=== PATIENT | female | born 1975 | race African-American/Black ===

== ENCOUNTER 2016-07-11 12:10 | Emergency (ER) | payer OTHER ==
[~2016-07-11 12:10] MED LIST: AUGMENTIN 875-1 EACH PO; CLONAZEPAM1 M2 PO; HYDROCHLOROTHIA25 M1 PO; IBUPROFEN600 M1 PO; MUPIROCIN22 GM TOP; NAPROXEN500 M1 PO; VIBRAMYCIN100 MG PO; ZOFRAN ODT4 M1 PO
--- NOTE | 2016-07-11 12:23 | ED GENERAL ADULT ---
History of Present Illness General Chief Complaint: Lower Extremity Problems Stated Complaint: BIBA KNEE PAIN AND ETOH Source: patient, family, old records, EMS Exam Limitations: intoxication Vital Signs & Intake/Output Vital Signs & Intake/Output Vital Signs Date Time Temp Pulse Resp B/P B/P Pulse O2 O2 Flow FiO2 Mean Ox Delivery Rate 07/11 1823 97.4 94 20 129/86 98 Room Air 07/11 1709 97.9 126 20 121/74 98 07/11 1501 97.0 82 18 124/78 98 Room Air 07/11 1500 97.0 82 18 124/78 07/11 1347 Room Air 07/11 1230 96.7 84 18 128/82 07/11 1220 96.7 84 18 128/82 100 Room Air Allergies Coded Allergies: venom-honey bee (Severe, ANAPHYLAXIS 12/09/15) Uncoded Allergies: DAIRY FOODS (Intermediate, BAD STOMACH THINGS 07/10/15) Reconcile Medications Clonazepam 1 MG TABLET 1 TAB PO TID PRN ANXIETY (Reported) Hydrochlorothiazide 25 MG TABLET 1 TAB PO DAILY WATER PILL (Reported) Naproxen 500 MG ECT 1 TAB PO BID PRN PAIN Paroxetine HCl 20 MG TABLET 1 TAB PO [facility] MENTAL HEALTH (Reported) Triage Nurses Notes Reviewed? yes HPI: Patient is a 41-year-old female brought in by ambulance with complaints of bilateral knee pain. Patient reports the pain is chronic. Today patient was drinking alcohol to try to make herself go to sleep to help with the pain. Patient was on the phone with her mother in [place] who called 911 out of concern for her daughter. Patient reports she drank approximately 5 drinks this morning and took Aleve to help with her pain. Patient complaining that her primary doctor will not do anything to address her pain. Patient has been going to physical therapy, had an MRI of her knees within the past 1 week. Patient denies recent trauma, suicidal ideation, suicide attempt (IRVIN OLIVARES,GLORIA) Past History Travel History Traveled to [place] past 21 day No Medical History Any Pertinent Medical History? 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 No (GLORIA SANTIAGO) Review of Systems Review of Systems Constitutional: Denies: chills, fever. EENTM: Reports: no symptoms. Respiratory: Denies: short of breath. Cardiovascular: Denies: chest pain. GI: Denies: abdominal pain. Musculoskeletal: Reports: see HPI, joint pain (chronic). Skin: Reports: no symptoms. Neurological/Psychological: Reports: see HPI, depressed, emotional problems. Hematologic/Endocrine: Reports: no symptoms. Immunologic/Allergic: Reports: no symptoms. (GLORIA SANTIAGO) Physical Exam Physical Exam General Appearance: alert, awake, intoxicated Head: atraumatic, normal appearance Eyes: Bilateral: normal appearance. Ears, Nose, Throat: hearing grossly normal Neck: normal inspection, full range of motion Respiratory: no respiratory distress Back: normal range of motion Extremities: normal inspection, normal range of motion Neurologic/Psych: awake, alert, appears intoxicated, pressured speech, circumferential. Skin: intact, normal color, warm/dry Core Measures ACS in differential dx? No CVA/TIA Diagnosis: No Severe Sepsis Present: No Septic Shock Present: No (GLORIA SANTIAGO) Progress Differential Diagnoses I considered the following diagnoses in my evaluation of the patient: alcohol intoxication, chronic pain, overdose, mood disorder, personality disorder, polysubstnace abuse Plan of Care: Orders Procedure Date/time Status Regular Diet 07/11 D Active Continuous Observation Monitor 07/11 1226 Active CIWA 07/11 1226 Active URINE DRUGS OF ABUSE 07/11 1226 Complete URINE 07/11 1226 Complete ACETOMINOPHEN 07/11 1226 Complete SALICYLATE 07/11 1226 Complete ETHANOL 07/11 1226 Complete COMPREHENSIVE METABOLIC PANEL 07/11 1226 Complete CBC WITHOUT DIFFERENTIAL 07/11 1226 Complete Laboratory Tests 07/11/16 1530: Anion Gap 16, Estimated GFR > 60, BUN/Creatinine Ratio 10.0, Glucose 85, Calcium 9.1, Total Bilirubin 0.7, AST 202 H, ALT 138 H, Alkaline Phosphatase 55, Total Protein 7.2, Albumin 4.2, Globulin 3.0, Albumin/Globulin Ratio 1.4, CBC w Diff NO MAN DIFF REQ, RBC 3.92 L, MCV 99.5 H, MCH 34.0 H, RDW 14.3, MPV 8.1, Gran % 42.9, Lymphocytes % 42.5, Monocytes % 11.7 H, Eosinophils % 1.6, Basophils % 1.3, Absolute Granulocytes 1.4, Absolute Lymphocytes 1.4, Absolute Monocytes 0.4 , Absolute Eosinophils 0.1, Absolute Basophils 0, PUBS MCHC 34.2, Salicylates < 1.0, Acetaminophen < 10.0 L, Serum Alcohol 366.0 07/11/16 1315: Urine Opiates Screen < 100.00, Methadone Screen < 40, Barbiturate Screen < 60, Ur Phencyclidine Scrn < 6.00, Amphetamines Screen 136, U Benzodiazepines Scrn < 85, Urine Cocaine Screen < 50, Urine Cannabis Screen < 5.00, Urine Test NEGATIVE 1700: Patient's mother here with patient. Discussed results of patient's MRI of her right knee with the patient and her mother. Patient's mother requesting pain medication for patient due to severe knee pain. I discussed with the patient and her mother given her level of alcohol intoxication that I am not comfortable prescribing pain medication. Patient's mother is not comfortable with the patient being discharged while patient is this intoxicated. 1800: Mother requesting that patient be discharged. Patient has been re- evaluated multiple times. No suicidal ideation on multiple re-examinations. Mother reports that she will be staying with the patient for the next couple of days until the patient's orthopedic appointment on Wednesday. (GLORIA SANTIAGO) Initial ED EKG: none (GLORIA SANTIAGO) Departure Departure Time of Disposition: 1809 Disposition: HOME OR SELF CARE Condition: Stable Clinical Impression Primary Impression: Alcohol intoxication Qualifiers: Complication of substance-induced condition: uncomplicated Qualified Code: F10.920 - Alcohol use, unspecified with intoxication, uncomplicated Secondary Impressions: Chronic pain of both knees Referrals: JUAN GONZALEZ APRN (PCP/Family) Additional Instructions: Follow up with your orthopedist on Wednesday. Follow up with your primary care provider and your therapist. Departure Forms: Customer Survey General Discharge Information (GLORIA SANTIAGO) PA/EMERGENCY PREPAREDNESS MANAGER Co-Sign Statement Statement: ED Attending supervision documentation- [] I saw and evaluated the patient. I have also reviewed all the pertinent lab results and diagnostic results. I agree with the findings and the plan of care as documented in the PA's/EMERGENCY PREPAREDNESS MANAGER's documentation. [X] I have reviewed the ED Record and agree with the PA's/EMERGENCY PREPAREDNESS MANAGER's documentation. [] Additions or exceptions (if any) to the PAs/EMERGENCY PREPAREDNESS MANAGER's note and plan are summarized below: [] (MELODIE DOMINGUEZ,RITA Mcelroy) Critical Care Note Critical Care Note Critical Care Time: non-applicable (IRVIN OLIVARES,GLORIA)
[2016-07-11] MEDS ORDERED: PAROXETINE HCL20 M1 PO (13:14)
[2016-07-11 15:38] LABS: ABSOLUTE BASOPHIL COUNT 0 /CUMM (0.0-0.2); ABSOLUTE EOSINOPHIL COUNT 0.1 /CUMM (0.0-0.7); ABSOLUTE GRANULOCYTE CT 1.4 /CUMM (1.4-6.5); ABSOLUTE LYMPH COUNT 1.4 /CUMM (1.2-3.4); ABSOLUTE MONOCYTE COUNT 0.4 /CUMM (0.10-0.60); BASOPHIL % 1.3 % (0.0-2.0); EOSINOPHIL % 1.6 % (0-5); GRANULOCYTE % 42.9 % (42.2-75.2); MEAN CORPUSCULAR HGB CONC 34.2 G/DL (33.0-37.0); MEAN CORPUSCULAR VOLUME 99.5 FL (81.0-99.0); MEAN PLATELET VOLUME 8.1 FL (7.4-10.4); PLATELET COUNT 147 /CUMM (130-400); RBC DISTRIBUTION WIDTH 14.3 % (11.5-14.5); RED BLOOD CELL CT 3.92 /CUMM (4.20-5.40); WHITE BLOOD CELL COUNT 3.3 /CUMM (4.8-10.8)
[2016-07-11 18:23] VITALS: BP 129/86
== END 2016-07-11 18:29 ==
LOC: ERH 12:10
PROVIDERS: Physician Assistant
DX: F10.129 Alcohol abuse with intoxication, unspecified (principal); G89.29 Other chronic pain; M25.561 Pain in right knee; M25.562 Pain in left knee
CPT/HCPCS: 80307; 81025; G0480

== ENCOUNTER 2017-04-18 14:26 | Emergency (ER) | payer OTHER ==
[~2017-04-18] VITALS: Ht 172.7 cm; Wt 77.1 kg
[~2017-04-18 14:26] MED LIST changes: +PAROXETINE HCL20 M1 PO
[2017-04-18] MEDS ORDERED: CLONIDINE HCL0.1 MG PO (14:47)
[2017-04-18] MEDS ORDERED: MELOXICAM15 M1 PO (14:48)
[2017-04-18] MEDS ORDERED: FLUOXETINE HCL20 M2 PO (14:48)
[2017-04-18] MEDS ORDERED: TRAZODONE HCL50 M1 PO (14:48)
[2017-04-18] MEDS ORDERED: MEDROXYPRO150 MG/11 IM (14:49)
--- NOTE | 2017-04-18 14:49 | ED CARDIAC/CP/PALPITATIONS ---
History of Present Illness General Chief Complaint: Dyspnea (COPD, CHF, Other) Stated Complaint: BIBA DIFF BREATHING AND CHEST TIGHTNESS Source: patient Exam Limitations: no limitations Vital Signs & Intake/Output Vital Signs & Intake/Output Vital Signs Date Time Temp Pulse Resp B/P B/P Pulse O2 O2 Flow FiO2 Mean Ox Delivery Rate 04/18 1803 98.4 76 18 163/94 97 Room Air 04/18 1723 98 04/18 1713 88 19 174/110 99 Room Air ED Intake and Output 04/19 0000 04/18 1200 Intake Total 100 Output Total Balance 100 Intake, Oral 100 Patient 170 lb Weight Weight Reported by Patient Measurement Method Allergies Coded Allergies: venom-honey bee (Severe, ANAPHYLAXIS 04/18/17) Uncoded Allergies: DAIRY FOODS (Intermediate, BAD STOMACH THINGS 07/10/15) Reconcile Medications Albuterol Sulfate (Proair Hfa) 90 MCG HFA.AER.AD 2 PUF INH Q4-6 PRN PRN COUGH/ CHEST TIGHTNESS Cholecalciferol (Vitamin D3) (Vitamin D) 2,000 UNIT TABLET 1 TAB PO DAILY SUPPLEMENT (Reported) Clonazepam 1 MG TABLET 1 TAB PO TID PRN ANXIETY (Reported) Clonidine HCl 0.1 MG TABLET 1 TAB PO BIDP ANXIETY AND PTSD (Reported) Fluoxetine HCl 20 MG CAPSULE 1 CAP PO DAILY ANXIETY (Reported) Hydrochlorothiazide 25 MG TABLET 1 TAB PO DAILY WATER PILL (Reported) Medroxyprogesterone Acetate 150 MG/ML SYRINGE 1 ML IM Q3M CONTRACEPTIVE ( Reported) Meloxicam 15 MG TABLET 1 TAB PO DAILY CHRONIC PAIN (Reported) Paroxetine HCl 20 MG TABLET 1 TAB PO QHS MENTAL HEALTH (Reported) Prednisone 50 MG TABLET 1 TAB PO DAILY COPD Trazodone HCl 50 MG TABLET 1 TAB PO QPMP PRN INSOMNIA (Reported) Triage Note: PT BIBA FROM HOME C/P, SOB AND NON PRODUCTIVE COUGH x APPROXIMATLY 1 WEEK. PAIN HAS BEEN MOSTLY CONSTANT BUT DOES WAX/WANE IN INTENSITY. DESCRIBES DISCOMFORT. +N/V FEW DAYS AGO, DENIES NAUSEA AT PRESENT. -DIAPHORESIS. EKG DONE ON ARRIVAL BY MARILYN AYALA. Triage Nurses Notes Reviewed? yes Onset: Abrupt Duration: week(s): (1), constant, continues in ED Timing: recent history Quality/Severity: tightness Location: central Radiation: no radiation Activities at Onset: none Prior Chest Pain/Card Workup: no prior chest pain, no prior cardiac workup Nitro Today/Relief: no nitro taken today Aspirin Today: no aspirin today Associated Symptoms: shortness of breath, cough LMP (ages 10-50): unknown : No Patient currently breastfeeds: No HPI: 41-year-old female asked medical history of anxiety, depression presents for evaluation of chest tightness and shortness of breath. Patient states symptoms started one week ago and have been constant. She states that the tightness is located diffusely in her chest and epigastric area and feels like a constricting feeling. It is associated with cough wheezing and shortness of breath. Patient states she is a current every day smoker and has been sober for many years. She denies any known history of COPD or asthma. She does not have an inhaler at home. She denies any fever or hemoptysis lower extremity edema. No chest pain or shortness of breath on exertion. She's never been evaluated for this before. Symptoms have been present constantly for 1 week. No nausea vomiting diarrhea sweats chills. (Alfred Pham) Past History Travel History Traveled to [place] past 21 day No Medical History Any Pertinent Medical History? 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 No (Alfred Pham) Review of Systems Review of Systems Constitutional: Reports: no symptoms. EENTM: Reports: no symptoms. Respiratory: Reports: see HPI, cough, short of breath, wheezing. Cardiovascular: Reports: see HPI, chest pain. GI: Reports: no symptoms. Genitourinary: Reports: no symptoms. Musculoskeletal: Reports: no symptoms. Skin: Reports: no symptoms. Neurological/Psychological: Reports: no symptoms. Hematologic/Endocrine: Reports: no symptoms. Immunologic/Allergic: Reports: no symptoms. All Other Systems: Reviewed and Negative (Alfred Pham) Physical Exam Physical Exam General Appearance: well developed/nourished, no apparent distress, alert, awake Head: atraumatic, normal appearance Eyes: Bilateral: normal appearance, PERRL, EOMI. Ears, Nose, Throat: normal pharynx, normal ENT inspection, hearing grossly normal Neck: normal inspection, supple, full range of motion Respiratory: no respiratory distress, decreased breath sounds, wheezing, chest wall is tender to palpation over the sternum and epigastric area no bruising swelling or abrasions no rashes Cardiovascular: regular rate/rhythm, normal peripheral pulses Peripheral Pulses: 2+ radial (R), 2+ radial (L) Gastrointestinal: normal bowel sounds, soft, no organomegaly, tenderness ( epigastric) Back: normal inspection, normal range of motion, no vertebral tenderness Extremities: normal inspection, normal range of motion, no edema Neurologic/Psych: no motor/sensory deficits, awake, alert, oriented x 3, normal gait Skin: intact, normal color, warm/dry Lymphatic: no anterior cervical mahin Core Measures ACS in differential dx? Yes No ASA d/t ruled out CVA/TIA Diagnosis No Sepsis Present: No Sepsis Focused Exam Completed? No (Prieto OLIVARES,Alfred) Progress Differential Diagnosis: AMI, aortic dissection, atrial fibrillation, CHF/pulm edema, musculoskeletal pain, pancreatitis, pericarditis, pneumonia, pneumothorax , PSVT, pulmonary embolism, PUD/GERD, PVCs/PACs, unstable angina, COPD, asthma exacerbation, acute bronchitis Plan of Care: Orders Procedure Date/time Status Add-on Test (ER Only) 04/18 1558 Active LIPASE 04/18 1455 Complete HUMAN BETA HCG SCREEN 04/18 1455 Complete URINE 04/18 1434 Active URINALYSIS 04/18 1434 Active TROPONIN LEVEL 04/18 1434 Complete COMPREHENSIVE METABOLIC PANEL 04/18 1434 Complete CBC WITHOUT DIFFERENTIAL 04/18 1434 Complete EKG 04/18 1427 Active Laboratory Tests 04/18/17 1455: Anion Gap 15, Estimated GFR > 60, BUN/Creatinine Ratio 11.1, Glucose 106 H, Calcium 9.8, Total Bilirubin 1.0, AST 39 H, ALT 32, Alkaline Phosphatase 76, Troponin I < 0.01, Total Protein 7.7, Albumin 4.4, Globulin 3.3, Albumin/ Globulin Ratio 1.3, Lipase 101, Total Beta HCG NEGATIVE, CBC w Diff NO MAN DIFF REQ, RBC 4.54, MCV 93.7, MCH 31.5 H, MCHC 33.7, RDW 14.5, MPV 8.6, Gran % 51.8, Lymphocytes % 38.8, Monocytes % 7.4, Eosinophils % 1.5, Basophils % 0.5, Absolute Granulocytes 2.8, Absolute Lymphocytes 2.1, Absolute Monocytes 0.4, Absolute Eosinophils 0.1, Absolute Basophils 0 04/18/17 1448: Lipase Cancelled Patient seen and evaluated. She denies symptoms for greater than a week now. Symptoms have been constant. She has tenderness palpation in her sternum and epigastric area. Breath sounds are diminished bilaterally with faint wheezing. Patient was given a DuoNeb and reported feeling better. CT scan of the chest abdomen and pelvis shows evidence of COPD. No pneumonia. All blood work is within normal limits EKG is stable negative troponin negative d-dimer. Patient is a long-time smoker suspect this may be COPD. Hypoxia. Patient was elevated in the emergency department does not desaturate. Patient will be treated with prednisone and pro-air. She'll be referred to a repairer engine production. Advised her to rest and plenty of fluids quit smoking Tylenol and ibuprofen for pain. Return precautions in detail patient appears chronically while she agrees the plan. Diagnostic Imaging: Viewed by Me: CT Scan. Discussed w/RAD: CT Scan. Radiology Impression: PATIENT: HALI LICEA PRESENT AGE: 41 PATIENT ACCOUNT NO: [id number] : 74 LOCATION: [facility] ORDERING PHYSICIAN: Alfred OLIVARES SERVICE DATE: 04/18/17 EXAM TYPE: CAT - CT ABD & PELVIS W/O IV CONTRAS; CT CHEST WO IV CONTRAST EXAMINATION: CT CHEST WITHOUT IV CONTRAST CT ABDOMEN AND PELVIS WITHOUT IV CONTRAST CLINICAL INFORMATION: 41- year-old female with chest pain, shortness of breath and epigastric pain. Evaluate for pulmonary edema, pneumonia, cholecystitis and/or abdominal aorta aneurysm. COMPARISON: CT images of the abdomen pelvis from 06/18/2009. TECHNIQUE : Multidetector CT imaging examination of the chest, abdomen and pelvis was performed without contrast. Axial images are displayed at 0.625 mm and 5 mm slice thickness. Coronal and sagittal reformatted images were generated at the technologist's workstation and submitted for review. DLP: 432 mGy-cm FINDINGS: CHEST - LUNGS and PLEURA: Trachea and central airways are widely patent and normal in caliber. Mild centrilobular emphysema. Small, 0.2 cm nodule in the anterior left lung apex (image 84, series 4). There appears to be mild wall thickening around a peripheral airway in the left apex (image 75, series 4). A small, 0.3 cm noncalcified nodule is present within the lingula (image 211, series 4). No suspicious appearing nodule, mass, consolidation, edema, pleural effusion or pneumothorax. MEDIASTINUM: The heart size is normal. Mild atherosclerotic calcification of left anterior descending coronary artery. Thoracic aorta and pulmonary arteries are normal in size. No pericardial effusion. The esophagus and thyroid gland are grossly unremarkable. LYMPHATICS: No pathologic sized axillary, hilar or mediastinal lymph nodes. CHEST WALL/BONES : Thoracic vertebra have normal density, height and alignment. No suspicious osseous lesions within the thorax. No chest wall mass. ABDOMEN AND PELVIS - HEPATOBILIARY: Liver has normal size, contour and attenuation. Gallbladder is physiologically distended and without radiopaque calculi, wall edema or pericholecystic fluid. No intrahepatic or extrahepatic bile duct dilatation. PANCREAS: Unremarkable. SPLEEN: Unremarkable. ADRENAL GLANDS: Unremarkable. KIDNEYS, URETERS, BLADDER: Unremarkable. No nephrolithiasis, hydroureteronephrosis or perinephric edema. Urinary bladder is normal. GI TRACT AND PERITONEUM: Stomach is grossly normal. Bowel loops are normal in size. Appendix is normal. There are scattered colonic diverticula without diverticulitis. No ascites or pneumoperitoneum. ABDOMINAL WALL: There is diastases of rectus abdominis muscles with a very small fat-containing umbilical hernia. VASCULAR: Abdominal aorta is normal for a noncontrast examination. No aortic aneurysm or retroperitoneal hematoma. The left gonadal vein is dilated to 0.8 cm, suggestive of venous valve incompetence. Multiple phleboliths are present in the pelvis. LYMPH NODES: No pathologic sized lymph nodes within the abdomen or pelvis. PELVIC VISCERA: The uterus and adnexa are unremarkable. No pelvic free fluid. OSSEOUS STRUCTURES: The lumbar vertebra have normal height and alignment. No suspicious osseous lesions. IMPRESSION: 1. No acute findings within the chest. Specifically, no evidence of pulmonary edema or pneumonia. 2. Mild centrilobular emphysema. Within the left lung, there are 0.2 cm and 0.3 cm noncalcified nodules. Based on updated guidelines from the Fleischner Society for nodules of this small size, routine CT follow-up is not required in a low- risk patient and is considered optional at 12 months in a high risk patient. 3. No acute findings within the abdomen or pelvis. 4. Colonic diverticulosis without diverticulitis. DICTATED BY: Denis Dial MD DATE/TIME DICTATED:04/18 MANIFEST CLERK:PIPO DATE/TIME TRANSCRIBED:04/18/171645 CONFIDENTIAL, DO NOT COPY WITHOUT APPROPRIATE AUTHORIZATION. Initial ED EKG: normal sinus rhythm, LVH, BORDERLINE PORLONGED QT INTERVAL QTC 496 (Alfred Pham) Departure Departure Disposition: HOME OR SELF CARE Condition: Stable Clinical Impression Primary Impression: COPD (chronic obstructive pulmonary disease) Qualifiers: COPD type: emphysema Emphysema type: unspecified Qualified Code: J43.9 - Emphysema, unspecified Referrals: Denise Lam APRN (PCP/Family) Meng Hinds MD Additional Instructions: Rest and drink plenty of fluids. Take steroids as directed for the full course. Use pro-air inhaler 2 puffs every 4-6 hours as needed for shortness of breath and chest tightness. Make a follow-up appointment with your primary care doctor and provided repairer engine production as soon as possible. Monitor symptoms closely return with any concerns. Departure Forms: Customer Survey General Discharge Information Prescriptions: Current Visit Scripts Albuterol Sulfate (Proair Hfa) 2 PUF INH Q4-6 PRN PRN COUGH/CHEST TIGHTNESS #1 INHAL Prednisone 1 TAB PO DAILY #5 TAB (Alfred Pham) PA/PERMASTONE INSTALLER Co-Sign Statement Statement: ED Attending supervision documentation- [] I saw and evaluated the patient. I have also reviewed all the pertinent lab results and diagnostic results. I agree with the findings and the plan of care as documented in the PA's/PERMASTONE INSTALLER's documentation. [X] I have reviewed the ED Record and agree with the PA's/PERMASTONE INSTALLER's documentation. [] Additions or exceptions (if any) to the PAs/PERMASTONE INSTALLER's note and plan are summarized below: [] (Alfonso DOMINGUEZ,Rod Mcelroy) Critical Care Note Critical Care Note Critical Care Time: non-applicable (Alfred Pham)
[2017-04-18] MEDS ORDERED: VITAMIN D2000 UNI1 PO (14:50)
[2017-04-18 15:09] LABS: ABSOLUTE BASOPHIL COUNT 0 /CUMM (0.0-0.2); ABSOLUTE EOSINOPHIL COUNT 0.1 /CUMM (0.0-0.7); ABSOLUTE GRANULOCYTE CT 2.8 /CUMM (1.4-6.5); ABSOLUTE LYMPH COUNT 2.1 /CUMM (1.2-3.4); ABSOLUTE MONOCYTE COUNT 0.4 /CUMM (0.10-0.60); BASOPHIL % 0.5 % (0.0-2.0); EOSINOPHIL % 1.5 % (0-5); GRANULOCYTE % 51.8 % (42.2-75.2); HEMATOCRIT 42.5 % (37-47); MEAN CORPUSCULAR HGB 31.5 PG (27.0-31.0); MEAN CORPUSCULAR HGB CONC 33.7 G/DL (33.0-37.0); MEAN CORPUSCULAR VOLUME 93.7 FL (81.0-99.0); MEAN PLATELET VOLUME 8.6 FL (7.4-10.4); PLATELET COUNT 217 /CUMM (130-400); RBC DISTRIBUTION WIDTH 14.5 % (11.5-14.5); RED BLOOD CELL CT 4.54 /CUMM (4.20-5.40); WHITE BLOOD CELL COUNT 5.5 /CUMM (4.8-10.8)
--- NOTE | 2017-04-18 17:03 | CT SCAN REPORT ---
EXAMINATION: CT CHEST WITHOUT IV CONTRAST CT ABDOMEN AND PELVIS WITHOUT IV CONTRAST CLINICAL INFORMATION: 41-year-old female with chest pain, shortness of breath and epigastric pain. Evaluate for pulmonary edema, pneumonia, cholecystitis and/or abdominal aorta aneurysm. COMPARISON: CT images of the abdomen pelvis from 06/18/2009. TECHNIQUE: Multidetector CT imaging examination of the chest, abdomen and pelvis was performed without contrast. Axial images are displayed at 0.625 mm and 5 mm slice thickness. Coronal and sagittal reformatted images were generated at the technologist's workstation and submitted for review. DLP: 432 mGy-cm FINDINGS: CHEST - LUNGS and PLEURA: Trachea and central airways are widely patent and normal in caliber. Mild centrilobular emphysema. Small, 0.2 cm nodule in the anterior left lung apex (image 84, series 4). There appears to be mild wall thickening around a peripheral airway in the left apex (image 75, series 4). A small, 0.3 cm noncalcified nodule is present within the lingula (image 211, series 4). No suspicious appearing nodule, mass, consolidation, edema, pleural effusion or pneumothorax. MEDIASTINUM: The heart size is normal. Mild atherosclerotic calcification of left anterior descending coronary artery. Thoracic aorta and pulmonary arteries are normal in size. No pericardial effusion. The esophagus and thyroid gland are grossly unremarkable. LYMPHATICS: No pathologic sized axillary, hilar or mediastinal lymph nodes. CHEST WALL/BONES: Thoracic vertebra have normal density, height and alignment. No suspicious osseous lesions within the thorax. No chest wall mass. ABDOMEN AND PELVIS - HEPATOBILIARY: Liver has normal size, contour and attenuation. Gallbladder is physiologically distended and without radiopaque calculi, wall edema or pericholecystic fluid. No intrahepatic or extrahepatic bile duct dilatation. PANCREAS: Unremarkable. SPLEEN: Unremarkable. ADRENAL GLANDS: Unremarkable. KIDNEYS, URETERS, BLADDER: Unremarkable. No nephrolithiasis, hydroureteronephrosis or perinephric edema. Urinary bladder is normal. GI TRACT AND PERITONEUM: Stomach is grossly normal. Bowel loops are normal in size. Appendix is normal. There are scattered colonic diverticula without diverticulitis. No ascites or pneumoperitoneum. ABDOMINAL WALL: There is diastases of rectus abdominis muscles with a very small fat-containing umbilical hernia. VASCULAR: Abdominal aorta is normal for a noncontrast examination. No aortic aneurysm or retroperitoneal hematoma. The left gonadal vein is dilated to 0.8 cm, suggestive of venous valve incompetence. Multiple phleboliths are present in the pelvis. LYMPH NODES: No pathologic sized lymph nodes within the abdomen or pelvis. PELVIC VISCERA: The uterus and adnexa are unremarkable. No pelvic free fluid. OSSEOUS STRUCTURES: The lumbar vertebra have normal height and alignment. No suspicious osseous lesions. IMPRESSION: 1. No acute findings within the chest. Specifically, no evidence of pulmonary edema or pneumonia. 2. Mild centrilobular emphysema. Within the left lung, there are 0.2 cm and 0.3 cm noncalcified nodules. Based on updated guidelines from the Fleischner Society for nodules of this small size, routine CT follow-up is not required in a low-risk patient and is considered optional at 12 months in a high risk patient. 3. No acute findings within the abdomen or pelvis. 4. Colonic diverticulosis without diverticulitis.
[2017-04-18] MEDS ORDERED: PROAIR HFA8.5 GM INH (17:52)
[2017-04-18] MEDS ORDERED: PREDNISONE50 M1 PO (17:52)
[2017-04-18 18:03] VITALS: BP 163/94
== END 2017-04-18 18:03 ==
LOC: ERH 14:26
PROVIDERS: Physician Assistant Medical
DX: J44.9 Chronic obstructive pulmonary disease, unspecified (principal); Z72.0 Tobacco use; R07.89 Other chest pain
CPT/HCPCS: 1263; 74176; 81025; 93005; 93010